=== PATIENT | female | born 2000 | race Caucasian/White ===

== ENCOUNTER 2022-04-13 23:11 | Emergency (ER) | payer BC ==
[2022-04-13] MEDS ORDERED: HYDROmorphone 1 MG/ML Syringe ONE (23:13)
[2022-04-13] MEDS ORDERED: HYDROmorphone 1 MG/ML Syringe IVPUSH ONE (23:22)
[2022-04-13] MEDS ORDERED: Sodium Chloride 0.9% 10 ML Syringe FLUSH PRN (23:22)
[2022-04-13] MEDS ORDERED: Sodium Chloride 0.9% 1,000 ML IV ONE (23:22)
[2022-04-13] MEDS ORDERED: Ondansetron 4 MG/2 ML SDV IVPUSH ONE (23:22)
[2022-04-13] MEDS ORDERED: Sodium Chloride 0.9% 2.5 ML Syringe FLUSH PRN (23:22)
[2022-04-13] MEDS ORDERED: ceFAZolin 2 GM in Premix Bag 1 BAG IV ONE (23:24)
[2022-04-13 23:36] LABS: BLOOD UREA NITROGEN,BUN 11 mg/dL (7.0-18.0); CARBON DIOXIDE,CO2 20.9 mmol/L (21.0-32.0); CHLORIDE,CL 101 mmol/L (98-107); GLUCOSE RANDOM 159 mg/dL (74-106); POTASSIUM,K 3.4 mmol/L (3.5-5.1); SODIUM,NA 139 mmol/L (136-145)
[2022-04-14] MEDS ORDERED: HYDROmorphone 1 MG/ML Syringe IVPUSH ONE (00:23)
[2022-04-14] MEDS ORDERED: LORazepam 2 MG/ML Syringe IVPUSH ONE (00:23)
[2022-04-14] MEDS: LORazepam 2 MG/ML SDV ONE ×2 (00:30)
[2022-04-14] MEDS ORDERED: Iopamidol 755 MG/ML 500 ML Multipack Bottle IVPUSH ONE (01:15)
== END 2022-04-14 02:34 ==
LOC: MW.ED 23:11
DX: S62.512A Displaced fracture of proximal phalanx of left thumb, initial encounter for closed fracture (principal); Z88.2 Allergy status to sulfonamides; Y36.2 War operations involving other explosions and fragments
CPT/HCPCS: 36415; 70450; 71260; 72125; 73130; 73552; 74177; 80053; 80307; 84484; 84703; 85025; 85610; 85730; 93005; 96365; 96375; 96376; 99285; J0690; J1170; J2060; J2405; J3490; J7030; Q9967

== ENCOUNTER 2022-04-23 16:09 | Emergency (ER) | payer BC ==
[2022-04-23] MEDS ORDERED: Sodium Chloride 0.9% 2.5 ML Syringe FLUSH PRN (16:32)
[2022-04-23] MEDS ORDERED: Sodium Chloride 0.9% 10 ML Syringe FLUSH PRN (16:32)
[2022-04-23] MEDS ORDERED: Sodium Chloride 0.9% 1,000 ML IV ONE (16:32)
[2022-04-23 17:42] LABS: BLOOD UREA NITROGEN,BUN 12 mg/dL (7.0-18.0); CARBON DIOXIDE,CO2 25.2 mmol/L (21.0-32.0); CHLORIDE,CL 103 mmol/L (98-107); GLUCOSE RANDOM 174 mg/dL (74-106); POTASSIUM,K 3.3 mmol/L (3.5-5.1); SODIUM,NA 138 mmol/L (136-145)
[2022-04-23 17:43] LABS: ESTIMATED GFR 83 mL/min (>60)
[2022-04-23 17:53] LABS: CORONAVIRUS COVID-19 NAA NEGATIVE (NEGATIVE); INFLUENZA A NAA NEGATIVE (NEGATIVE); INFLUENZA B NAA NEGATIVE (NEGATIVE)
[2022-04-23] MEDS ORDERED: Acetaminophen 500 MG Tab PO ONE (18:13)
[2022-04-23] MEDS ORDERED: Iopamidol 755 MG/ML 500 ML Multipack Bottle IVPUSH STA (20:36)
== END 2022-04-23 22:10 | disposition home or self-care (01) ==
LOC: MW.ED 16:09
DX: R50.9 Fever, unspecified (principal); Z20.822 Contact with and (suspected) exposure to COVID-19; Z88.2 Allergy status to sulfonamides
CPT/HCPCS: 0240U; 36415; 71045; 73130; 73201; 80053; 83605; 84703; 85025; 85652; 86140; 87040; 99284; A9270; J3490; J7030; Q9967